=== PATIENT | female | born 1965 | race African-American/Black ===

== ENCOUNTER 2018-06-15 00:24 | Inpatient (IN) ==
[2018-06-15 01:05] LABS: Basophils % 0.4 % (0.0-0.8); Eosinophils % 0.1 % (0.00-10.9); Hematocrit 39.5 VOL% (35.7-47.0); Hemoglobin 13.1 GM/DL (12.0-16.0); Immature Granulocytes % 0.9 %; Immature Granulocytes Absolute 0.06 #; Lymphocytes # 1.2 10*3/uL (1.4-4.0); Lymphocytes % 17.1 % (21.3-54.2); Mean Corpuscular HGB Conc 33.2 GM/DL (32-36); Mean Corpuscular Hemoglobin 30 PG (27-34); Mean Corpuscular Volume 91.4 FL (87-102); Mean Platelet Volume 10.8 FL (9.6-12.0); Monocytes # 0.6 10*3/uL (0.11-0.8); Monocytes % 8.9 % (1.7-12.7); Neutrophils # 5.1 10*3/uL (1.4-7.4); Neutrophils % 72.6 % (38.7-73.9); Platelet Count 279 T/CUMM (130-400); Red Blood Count 4.32 MC/CUMM (3.8-5.5); Red Cell Distribution Width 14.4 % (9.3-17.3)
[2018-06-15 01:12] LABS: PT Patient Result 10.7 SECS; Partial Thromboplastin Time 28.2 SECS (0-40)
[2018-06-15 01:41] LABS: Alanine Aminotransferase 15 U/L (13-56); Albumin 4.3 G/DL (3.4-5.0); Alkaline Phosphatase 127 U/L (45-117); Amylase 49 U/L (25-115); Aspartate Amino Transferase 10 U/L (0-37); Bilirubin,Total < 0.39 MG/DL (0.2-1.0); Blood Urea Nitrogen 14 MG/DL (7-18); Calcium 10.9 MG/DL (8.5-10.1); Glucose 140 MG/DL (74-106); Lactic Acid 1.2 MMOL/L (0.4-2.0); Osmolality,Calculated 288.8 MOS/KG (273-304); Potassium 3.5 MMOL/L (3.5-5.1); Sodium 144 MMOL/L (136-145)
[2018-06-15] MEDS ORDERED: ONDANSETRON 4 MG/2 ML VIAL IV ONE ×2 (01:44→05:53)
[2018-06-15] MEDS ORDERED: KETOROLAC 30 MG/1 ML VIAL IV STA (01:44)
[2018-06-15 03:55] LABS: Amorphous Crystals,Urine Occasional /HPF (Few); Apearance,Urine CLOUDY (Clear); Bacteria,Urine Few /HPF (Few); Bilirubin,Urine Negative (Negative); Blood, Urine Small mg/dL (Negative); Glucose,Urine (UA) Negative (Negative); Ketones,Urine Negative (Negative); Mucus,Urine Moderate /LPF (Occasional); Nitrite,Urine Negative (Negative); Protein,Urine 30 MG/DL; RBC,Urine 47 /HPF (0-4); Urine Color Amber (Yellow); Urine Urobilinogen < 2.0 EU/DL (0.2-1.0)
[2018-06-15] MEDS ORDERED: fentaNYL 100 MCG/2 ML VIAL IV STA (05:53)
[2018-06-15] MEDS ORDERED: HYDROmorphone 2 MG/1 ML VIAL IV PRN (08:02)
[2018-06-15] MEDS: PANTOPRAZOLE 40 MG VIAL IV SCH (08:33)
[2018-06-15] MEDS: DEXTROSE 5% NACL 0.45% 1,000 ML IV SCH ×2 (08:33→15:16)
[2018-06-15] MEDS ORDERED: MORPHINE 4 MG/1 ML VIAL IV PRN (12:37)
[2018-06-15] MEDS ORDERED: MORPHINE 4 MG/1 ML VIAL ONE (12:40)
[2018-06-15] MEDS ORDERED: HYDROmorphone 2 MG/1 ML VIAL ONE (12:54)
[2018-06-15] MEDS: HYDROmorphone 2 MG/1 ML VIAL IV PRN ×4 (12:58→20:53)
[2018-06-15] MEDS ORDERED: POTASSIUM CHLORIDE INJ 20 MEQ in DEXTROSE 5% NACL 0.45% 1,000 ML IV SCH (15:51)
[2018-06-15] MEDS: DEXT 5% NACL 0.45% KCL 20 MEQ 20 MEQ/1,000 ML BAG IV SCH (16:52)
[2018-06-15] MEDS: ENOXAPARIN 40 MG/0.4 ML SYRINGE SUBCUT SCH (16:54)
[2018-06-15] MEDS: ONDANSETRON 4 MG/2 ML VIAL IV PRN (21:13)
[2018-06-16] MEDS: DEXT 5% NACL 0.45% KCL 20 MEQ 20 MEQ/1,000 ML BAG IV SCH ×2 (00:39→11:11)
[2018-06-16] MEDS: HYDROmorphone 2 MG/1 ML VIAL IV PRN ×6 (00:41→20:04)
[2018-06-16] MEDS: ONDANSETRON 4 MG/2 ML VIAL IV PRN ×3 (03:14→20:08)
[2018-06-16 07:24] LABS: Basophils # 0.1 10*3/uL (0.0-0.2); Basophils % 0.8 % (0.0-0.8); Eosinophils % 0.6 % (0.00-10.9); Hematocrit 42.6 VOL% (35.7-47.0); Hemoglobin 14.3 GM/DL (12.0-16.0); Immature Granulocytes % 0.2 %; Immature Granulocytes Absolute 0.01 #; Lymphocytes # 1.4 10*3/uL (1.4-4.0); Lymphocytes % 22.6 % (21.3-54.2); Mean Corpuscular HGB Conc 33.6 GM/DL (32-36); Mean Corpuscular Hemoglobin 31 PG (27-34); Mean Corpuscular Volume 91.2 FL (87-102); Mean Platelet Volume 9.8 FL (9.6-12.0); Monocytes # 0.8 10*3/uL (0.11-0.8); Monocytes % 13.5 % (1.7-12.7); Neutrophils # 3.8 10*3/uL (1.4-7.4); Neutrophils % 62.3 % (38.7-73.9); Platelet Count 239 T/CUMM (130-400); Red Blood Count 4.67 MC/CUMM (3.8-5.5); Red Cell Distribution Width 14.6 % (9.3-17.3); White Blood Count 6.2 T/CUMM (4-12)
[2018-06-16 07:49] LABS: Osmolality,Calculated 286.4 MOS/KG (273-304); Potassium 4.3 MMOL/L (3.5-5.1)
[2018-06-16 08:02] LABS: Parathyroid Hormone Intact 112.5 PG/ML (18.4-80.1)
[2018-06-16 08:06] LABS: Albumin 3.8 G/DL (3.4-5.0); Bilirubin,Total 0.4 MG/DL (0.2-1.0); Calcium 9.9 MG/DL (8.5-10.1); Osmolality,Calculated 284.5 MOS/KG (273-304); Potassium 4.3 MMOL/L (3.5-5.1); Risk Ratio 1.66; Total Protein 8.5 G/DL (6.4-8.3); VLDL CHOLESTEROL 12.2 MG/DL
[2018-06-16] MEDS ORDERED: METOPROLOL TARTRATE 5 MG/5 ML VIAL IV PRN (08:47)
[2018-06-16] MEDS ORDERED: SODIUM CHLORIDE 0.9% 500 ML IV ONE (08:47)
[2018-06-16] MEDS: PANTOPRAZOLE 40 MG VIAL IV SCH (10:04)
[2018-06-16] MEDS: SODIUM CHLORIDE 0.9% 1,000 ML IV SCH ×2 (11:02→20:03)
[2018-06-16] MEDS ORDERED: PROMETHAZINE 25 MG/1 ML VIAL IM PRN (11:08)
[2018-06-16] MEDS ORDERED: cefOXitin 2,000 MG in SYRINGE 1 EACH IV ONE (12:30)
[2018-06-16 14:57] LABS: Apearance,Urine Slightly Hazy (Clear); Bilirubin,Urine Negative (Negative); Blood, Urine Negative (Negative); Glucose,Urine (UA) Negative (Negative); Hyaline Casts,Urine 3 /LPF (0-3); Ketones,Urine Negative (Negative); Mucus,Urine Occasional /LPF (Occasional); Nitrite,Urine Negative (Negative); Protein,Urine 30 MG/DL; RBC,Urine 1 /HPF (0-4); Urine Color Amber (Yellow); Urine Specific Gravity 1.042 (1.001-1.035); Urine Urobilinogen < 2.0 EU/DL (0.2-1.0); WBC,Urine 3 /HPF (0-6)
[2018-06-16] MEDS ORDERED: PROPOFOL 200 MG/20 ML VIAL IV ONE (14:57)
[2018-06-16] MEDS ORDERED: SEVOFLURANE 1 UNIT/15 MINUTE INH ONE (14:57)
[2018-06-16] MEDS ORDERED: PHENYLEPHRINE 1 MG/10 ML SYRINGE IV ONE (14:58)
[2018-06-16] MEDS ORDERED: MIDAZOLAM 2 MG/2 ML VIAL ONE (14:58)
[2018-06-16] MEDS ORDERED: GLYCOPYRROLATE 0.4 MG/2 ML VIAL ONE (14:58)
[2018-06-16] MEDS ORDERED: ONDANSETRON 4 MG/2 ML VIAL ONE ×2 (14:58→15:48)
[2018-06-16] MEDS ORDERED: fentaNYL 100 MCG/2 ML VIAL ONE (14:58)
[2018-06-16] MEDS ORDERED: PHENYLEPHRINE 10 MG/1 ML VIAL IV ONE (14:58)
[2018-06-16] MEDS ORDERED: SUCCINYLCHOLINE 200 MG/10 ML VIAL ONE (14:59)
[2018-06-16] MEDS ORDERED: NEOSTIGMINE 10 MG/10 ML VIAL ONE (14:59)
[2018-06-16] MEDS ORDERED: ROCURONIUM 100 MG/10 ML VIAL IV ONE (14:59)
[2018-06-16] MEDS ORDERED: LACTATED RINGERS 1,000 ML IV ONE (14:59)
[2018-06-16] MEDS ORDERED: SODIUM CHLORIDE 0.9% 100 ML IV ONE (15:02)
[2018-06-16] MEDS ORDERED: HYDROmorphone 2 MG/1 ML VIAL ONE (15:48)
[2018-06-16] MEDS ORDERED: ONDANSETRON 4 MG/2 ML VIAL IV PRN (15:48)
[2018-06-16] MEDS ORDERED: HYDROmorphone 2 MG/1 ML VIAL IV PRN (15:48)
[2018-06-16] MEDS ORDERED: LACTATED RINGERS 1,000 ML IV SCH (16:00)
[2018-06-16] MEDS ORDERED: hydrALAZINE 20 MG/1 ML VIAL IV PRN (17:03)
[2018-06-16] MEDS: ENOXAPARIN 40 MG/0.4 ML SYRINGE SUBCUT SCH (18:39)
[2018-06-17] MEDS: SODIUM CHLORIDE 0.9% 1,000 ML IV SCH ×3 (03:30→18:41)
[2018-06-17] MEDS: ONDANSETRON 4 MG/2 ML VIAL IV PRN ×2 (03:36→20:53)
[2018-06-17] MEDS: HYDROmorphone 2 MG/1 ML VIAL IV PRN ×4 (05:55→20:49)
[2018-06-17] MEDS: PANTOPRAZOLE 40 MG VIAL IV SCH (09:02)
[2018-06-17] MEDS: ENOXAPARIN 40 MG/0.4 ML SYRINGE SUBCUT SCH ×2 (09:02→17:01)
[2018-06-17 09:15] LABS: Basophils # 0.1 10*3/uL (0.0-0.2); Basophils % 0.5 % (0.0-0.8); Eosinophils % 0.2 % (0.00-10.9); Hematocrit 41.2 VOL% (35.7-47.0); Immature Granulocytes % 0.3 %; Immature Granulocytes Absolute 0.03 #; Lymphocytes # 1.5 10*3/uL (1.4-4.0); Lymphocytes % 12.8 % (21.3-54.2); Mean Corpuscular Hemoglobin 31 PG (27-34); Mean Corpuscular Volume 90.2 FL (87-102); Mean Platelet Volume 10.4 FL (9.6-12.0); Monocytes % 8.5 % (1.7-12.7); Neutrophils # 8.8 10*3/uL (1.4-7.4); Neutrophils % 77.7 % (38.7-73.9); Platelet Count 197 T/CUMM (130-400); Red Blood Count 4.57 MC/CUMM (3.8-5.5); White Blood Count 11.3 T/CUMM (4-12)
[2018-06-17 09:42] LABS: Anisocytosis 1+; Band Neutrophils 59 % (0-10); Lymphocytes 14 % (20-55); Macrocytosis Slight; Platelet Estimate Normal; Segmented Neutrophils 19 % (50-85); Total Cells Counted 100
[2018-06-17 09:47] LABS: Calcium 8.6 MG/DL (8.5-10.1); Potassium 4.4 MMOL/L (3.5-5.1)
[2018-06-17] MEDS ORDERED: SODIUM CHLORIDE 0.9% 1,000 ML IV ONE ×2 (11:22→14:47)
[2018-06-17] MEDS ORDERED: MAGNESIUM SULF RIDER 2 GM in PREMIX 1 EACH IV ONE (11:24)
[2018-06-17] MEDS: MAGNESIUM SULF RIDER 2 GM in PREMIX 1 EACH IV PRN (12:48)
[2018-06-18] MEDS: SODIUM CHLORIDE 0.9% 1,000 ML IV SCH ×2 (00:02→05:58)
[2018-06-18] MEDS: HYDROmorphone 2 MG/1 ML VIAL IV PRN ×4 (04:40→20:17)
[2018-06-18] MEDS: ONDANSETRON 4 MG/2 ML VIAL IV PRN (04:44)
[2018-06-18 06:16] LABS: Basophils # 0.1 10*3/uL (0.0-0.2); Basophils % 0.5 % (0.0-0.8); Eosinophils # 0.2 10*3/uL (0.0-0.87); Eosinophils % 1.9 % (0.00-10.9); Hematocrit 33.2 VOL% (35.7-47.0); Hemoglobin 10.7 GM/DL (12.0-16.0); Immature Granulocytes % 0.3 %; Immature Granulocytes Absolute 0.03 #; Lymphocytes % 9.6 % (21.3-54.2); Mean Corpuscular HGB Conc 32.2 GM/DL (32-36); Mean Corpuscular Hemoglobin 30 PG (27-34); Mean Corpuscular Volume 92.2 FL (87-102); Mean Platelet Volume 10.4 FL (9.6-12.0); Monocytes # 0.9 10*3/uL (0.11-0.8); Monocytes % 8.6 % (1.7-12.7); Neutrophils # 7.8 10*3/uL (1.4-7.4); Neutrophils % 79.1 % (38.7-73.9); Platelet Count 145 T/CUMM (130-400); Red Cell Distribution Width 13.9 % (9.3-17.3); White Blood Count 9.9 T/CUMM (4-12)
[2018-06-18 06:31] LABS: Calcium 8.9 MG/DL (8.5-10.1); Osmolality,Calculated 296.6 MOS/KG (273-304)
[2018-06-18 06:41] LABS: Band Neutrophils 8 % (0-10); Eosinophils 2 % (0-10); Hypochromasia 1+; Lymphocytes 6 % (20-55); Ovalocytes Slight; Platelet Estimate Normal; Segmented Neutrophils 76 % (50-85); Total Cells Counted 100
[2018-06-18 06:42] LABS: Macrocytosis Slight
[2018-06-18] MEDS ORDERED: SODIUM CHLORIDE 0.45% 1,000 ML IV SCH (08:00)
[2018-06-18] MEDS: ENOXAPARIN 40 MG/0.4 ML SYRINGE SUBCUT SCH ×2 (08:42→17:09)
[2018-06-18] MEDS: PANTOPRAZOLE 40 MG VIAL IV SCH (08:42)
[2018-06-18] MEDS: DEXTROSE 5% NACL 0.45% 1,000 ML IV SCH ×2 (11:02→20:18)
[2018-06-19] MEDS: HYDROmorphone 2 MG/1 ML VIAL IV PRN ×4 (00:32→20:26)
[2018-06-19] MEDS: DEXTROSE 5% NACL 0.45% 1,000 ML IV SCH ×3 (04:03→20:28)
[2018-06-19 07:12] LABS: Basophils % 0.3 % (0.0-0.8); Eosinophils # 0.2 10*3/uL (0.0-0.87); Eosinophils % 2.6 % (0.00-10.9); Hemoglobin 10.5 GM/DL (12.0-16.0); Immature Granulocytes % 0.4 %; Immature Granulocytes Absolute 0.03 #; Lymphocytes # 0.8 10*3/uL (1.4-4.0); Lymphocytes % 10.1 % (21.3-54.2); Mean Corpuscular HGB Conc 33.9 GM/DL (32-36); Mean Corpuscular Hemoglobin 30 PG (27-34); Mean Corpuscular Volume 89.6 FL (87-102); Mean Platelet Volume 10.2 FL (9.6-12.0); Monocytes # 0.7 10*3/uL (0.11-0.8); Monocytes % 8.7 % (1.7-12.7); Neutrophils % 77.9 % (38.7-73.9); Platelet Count 138 T/CUMM (130-400); Red Blood Count 3.46 MC/CUMM (3.8-5.5); Red Cell Distribution Width 13.7 % (9.3-17.3); White Blood Count 7.6 T/CUMM (4-12)
[2018-06-19 07:39] LABS: Calcium 9.4 MG/DL (8.5-10.1); Potassium 3.8 MMOL/L (3.5-5.1)
[2018-06-19] MEDS: PANTOPRAZOLE 40 MG VIAL IV SCH (08:20)
[2018-06-19] MEDS ORDERED: PHENOL 1.4% THROAT SPRAY 177 ML BOTTLE PO PRN (11:37)
[2018-06-19] MEDS: ENOXAPARIN 40 MG/0.4 ML SYRINGE SUBCUT SCH (17:47)
[2018-06-19] MEDS: ONDANSETRON 4 MG/2 ML VIAL IV PRN (18:29)
[2018-06-19] MEDS: ALBUTEROL/IPRATROPIUM 3 ML NEB RESP TX SCH (18:47)
[2018-06-20] MEDS: ALBUTEROL/IPRATROPIUM 3 ML NEB RESP TX SCH ×4 (00:55→19:51)
[2018-06-20] MEDS: DEXTROSE 5% NACL 0.45% 1,000 ML IV SCH (02:05)
[2018-06-20] MEDS: HYDROmorphone 2 MG/1 ML VIAL IV PRN ×4 (03:46→23:00)
[2018-06-20 07:25] LABS: Basophils % 0.3 % (0.0-0.8); Eosinophils # 0.1 10*3/uL (0.0-0.87); Eosinophils % 1.5 % (0.00-10.9); Hematocrit 31.2 VOL% (35.7-47.0); Hemoglobin 10.4 GM/DL (12.0-16.0); Immature Granulocytes % 0.3 %; Immature Granulocytes Absolute 0.03 #; Lymphocytes # 1.3 10*3/uL (1.4-4.0); Mean Corpuscular HGB Conc 33.3 GM/DL (32-36); Mean Corpuscular Hemoglobin 30 PG (27-34); Mean Corpuscular Volume 90.2 FL (87-102); Mean Platelet Volume 10.7 FL (9.6-12.0); Monocytes # 0.8 10*3/uL (0.11-0.8); Neutrophils # 7.1 10*3/uL (1.4-7.4); Neutrophils % 75.9 % (38.7-73.9); Platelet Count 148 T/CUMM (130-400); Red Blood Count 3.46 MC/CUMM (3.8-5.5); Red Cell Distribution Width 13.3 % (9.3-17.3); White Blood Count 9.4 T/CUMM (4-12)
[2018-06-20 07:50] LABS: Calcium 9.1 MG/DL (8.5-10.1); Osmolality,Calculated 285.8 MOS/KG (273-304); Potassium 2.9 MMOL/L (3.5-5.1)
[2018-06-20] MEDS ORDERED: DEXT 5% NACL 0.45% KCL 20 MEQ 20 MEQ/1,000 ML BAG IV SCH (09:30)
[2018-06-20] MEDS: PANTOPRAZOLE 40 MG VIAL IV SCH (09:46)
[2018-06-20] MEDS: POTASSIUM CHLORIDE RIDER 10 MEQ in PREMIX 1 EACH IV PRN ×4 (11:14→23:59)
[2018-06-20] MEDS ORDERED: FUROSEMIDE 40 MG/4 ML VIAL IV ONE (11:24)
[2018-06-20] MEDS ORDERED: DEXTROSE 50% 25 GM/50 ML VIAL IV PRN (11:31)
[2018-06-20] MEDS ORDERED: GLUCAGON 1 MG VIAL IM PRN (11:31)
[2018-06-20] MEDS: MAGNESIUM SULF RIDER 2 GM in PREMIX 1 EACH IV PRN (16:20)
[2018-06-20] MEDS: FAT EMULSION 20% 250 ML IV SCH (16:21)
[2018-06-20] MEDS ORDERED: [UNRECOGNIZED DRUG - OTHER] IV ONE (17:00)
[2018-06-20] MEDS ORDERED: MULTIVITAMIN IV ONE (17:00)
[2018-06-20] MEDS ORDERED: POTASSIUM PHOSPHATE IV ONE (17:00)
[2018-06-20] MEDS ORDERED: TRACE ELEMENTS IV ONE (17:00)
[2018-06-20] MEDS: INSULIN REGULAR 100 UNIT/ML SUBCUT SCH (17:43)
[2018-06-20] MEDS: ENOXAPARIN 40 MG/0.4 ML SYRINGE SUBCUT SCH (17:52)
[2018-06-21] MEDS: ALBUTEROL/IPRATROPIUM 3 ML NEB RESP TX SCH ×5 (00:15→23:43)
[2018-06-21] MEDS: INSULIN REGULAR 100 UNIT/ML SUBCUT SCH ×4 (01:31→18:42)
[2018-06-21] MEDS: HYDROmorphone 2 MG/1 ML VIAL IV PRN ×3 (05:06→18:12)
[2018-06-21 05:56] LABS: Basophils % 0.4 % (0.0-0.8); Eosinophils # 0.2 10*3/uL (0.0-0.87); Eosinophils % 2.9 % (0.00-10.9); Hematocrit 33.3 VOL% (35.7-47.0); Immature Granulocytes % 0.4 %; Immature Granulocytes Absolute 0.03 #; Lymphocytes # 1.5 10*3/uL (1.4-4.0); Lymphocytes % 18.2 % (21.3-54.2); Mean Corpuscular Hemoglobin 29 PG (27-34); Mean Corpuscular Volume 88.6 FL (87-102); Mean Platelet Volume 10.4 FL (9.6-12.0); Monocytes % 12.1 % (1.7-12.7); Neutrophils # 5.3 10*3/uL (1.4-7.4); Platelet Count 162 T/CUMM (130-400); Red Blood Count 3.76 MC/CUMM (3.8-5.5); Red Cell Distribution Width 13.2 % (9.3-17.3)
[2018-06-21 06:25] LABS: Alanine Aminotransferase 12 U/L (13-56); Albumin 2.3 G/DL (3.4-5.0); Alkaline Phosphatase 118 U/L (45-117); Aspartate Amino Transferase 13 U/L (0-37); Bilirubin,Total < 0.39 MG/DL (0.2-1.0); Blood Urea Nitrogen 15 MG/DL (7-18); Calcium 9.5 MG/DL (8.5-10.1); Glucose 133 MG/DL (74-106); Osmolality,Calculated 285.1 MOS/KG (273-304); Potassium 3.2 MMOL/L (3.5-5.1); Sodium 142 MMOL/L (136-145); Total Protein 6.8 G/DL (6.4-8.3)
[2018-06-21 06:29] LABS: Calcium 9.4 MG/DL (8.5-10.1); Potassium 3.2 MMOL/L (3.5-5.1); Prealbumin 7.3 MG/DL (20-40)
[2018-06-21] MEDS ORDERED: LEVOTHYROXINE 100 MCG VIAL IV SCH (07:00)
[2018-06-21] MEDS: PANTOPRAZOLE 40 MG VIAL IV SCH (10:03)
[2018-06-21] MEDS: LEVOTHYROXINE 100 MCG VIAL IV SCH (10:05)
[2018-06-21] MEDS: POTASSIUM CHLORIDE RIDER 10 MEQ in PREMIX 1 EACH IV PRN ×4 (10:10→14:08)
[2018-06-21] MEDS: FAT EMULSION 20% 250 ML IV SCH (15:19)
[2018-06-21] MEDS ORDERED: DEXTROSE 10% 1,000 ML IV PRN (17:00)
[2018-06-21] MEDS: [UNRECOGNIZED DRUG - OTHER] IV SCH (17:13)
[2018-06-21] MEDS: MULTIVITAMIN IV SCH (17:13)
[2018-06-21] MEDS: POTASSIUM PHOSPHATE IV SCH (17:13)
[2018-06-21] MEDS: TRACE ELEMENTS IV SCH (17:13)
[2018-06-21] MEDS: ENOXAPARIN 40 MG/0.4 ML SYRINGE SUBCUT SCH (17:22)
[2018-06-21] MEDS: ONDANSETRON 4 MG/2 ML VIAL IV PRN (18:13)
[2018-06-22] MEDS: HYDROmorphone 2 MG/1 ML VIAL IV PRN ×5 (00:02→21:05)
[2018-06-22] MEDS: ONDANSETRON 4 MG/2 ML VIAL IV PRN ×4 (00:02→21:05)
[2018-06-22] MEDS: INSULIN REGULAR 100 UNIT/ML SUBCUT SCH ×4 (00:58→17:46)
[2018-06-22] MEDS: POTASSIUM CHLORIDE RIDER 10 MEQ in PREMIX 1 EACH IV PRN ×2 (02:58→05:00)
[2018-06-22 06:05] LABS: Basophils # 0.1 10*3/uL (0.0-0.2); Basophils % 0.8 % (0.0-0.8); Eosinophils # 0.2 10*3/uL (0.0-0.87); Eosinophils % 2.7 % (0.00-10.9); Hematocrit 35.6 VOL% (35.7-47.0); Hemoglobin 11.9 GM/DL (12.0-16.0); Immature Granulocytes % 0.7 %; Immature Granulocytes Absolute 0.06 #; Lymphocytes # 1.8 10*3/uL (1.4-4.0); Lymphocytes % 19.5 % (21.3-54.2); Mean Corpuscular HGB Conc 33.4 GM/DL (32-36); Mean Corpuscular Hemoglobin 30 PG (27-34); Mean Corpuscular Volume 89.2 FL (87-102); Mean Platelet Volume 10.4 FL (9.6-12.0); Monocytes # 1.4 10*3/uL (0.11-0.8); Monocytes % 15.1 % (1.7-12.7); Neutrophils # 5.5 10*3/uL (1.4-7.4); Neutrophils % 61.2 % (38.7-73.9); Platelet Count 214 T/CUMM (130-400); Red Blood Count 3.99 MC/CUMM (3.8-5.5); Red Cell Distribution Width 13.2 % (9.3-17.3)
[2018-06-22 06:19] LABS: Calcium 9.1 MG/DL (8.5-10.1); Osmolality,Calculated 284.3 MOS/KG (273-304); Potassium 4.1 MMOL/L (3.5-5.1)
[2018-06-22 06:24] LABS: Albumin 2.3 G/DL (3.4-5.0); Bilirubin,Total 0.6 MG/DL (0.2-1.0); Calcium 9.4 MG/DL (8.5-10.1); Osmolality,Calculated 282.4 MOS/KG (273-304); Potassium 4.1 MMOL/L (3.5-5.1); Total Protein 6.8 G/DL (6.4-8.3)
[2018-06-22] MEDS: ALBUTEROL/IPRATROPIUM 3 ML NEB RESP TX SCH ×3 (07:32→19:49)
[2018-06-22] MEDS: PANTOPRAZOLE 40 MG VIAL IV SCH (08:32)
[2018-06-22] MEDS: LEVOTHYROXINE 100 MCG VIAL IV SCH (08:32)
[2018-06-22] MEDS: FAT EMULSION 20% 250 ML IV SCH (14:50)
[2018-06-22] MEDS: ENOXAPARIN 40 MG/0.4 ML SYRINGE SUBCUT SCH (17:28)
[2018-06-22] MEDS: POTASSIUM PHOSPHATE IV SCH (17:28)
[2018-06-22] MEDS: TRACE ELEMENTS IV SCH (17:28)
[2018-06-22] MEDS: MULTIVITAMIN IV SCH (17:28)
[2018-06-22] MEDS: [UNRECOGNIZED DRUG - OTHER] IV SCH (17:28)
[2018-06-23] MEDS: INSULIN REGULAR 100 UNIT/ML SUBCUT SCH ×4 (00:57→18:48)
[2018-06-23] MEDS: ALBUTEROL/IPRATROPIUM 3 ML NEB RESP TX SCH ×4 (02:09→19:26)
[2018-06-23] MEDS: HYDROmorphone 2 MG/1 ML VIAL IV PRN ×4 (02:56→20:13)
[2018-06-23] MEDS: ONDANSETRON 4 MG/2 ML VIAL IV PRN ×2 (02:56→18:52)
[2018-06-23 07:09] LABS: Basophils # 0.1 10*3/uL (0.0-0.2); Basophils % 0.7 % (0.0-0.8); Eosinophils # 0.4 10*3/uL (0.0-0.87); Eosinophils % 4.3 % (0.00-10.9); Hematocrit 34.4 VOL% (35.7-47.0); Hemoglobin 11.4 GM/DL (12.0-16.0); Immature Granulocytes % 0.4 %; Immature Granulocytes Absolute 0.04 #; Lymphocytes # 2.4 10*3/uL (1.4-4.0); Lymphocytes % 25.2 % (21.3-54.2); Mean Corpuscular HGB Conc 33.1 GM/DL (32-36); Mean Corpuscular Hemoglobin 30 PG (27-34); Mean Corpuscular Volume 90.1 FL (87-102); Mean Platelet Volume 10.8 FL (9.6-12.0); Monocytes # 1.3 10*3/uL (0.11-0.8); Monocytes % 13.9 % (1.7-12.7); Neutrophils # 5.2 10*3/uL (1.4-7.4); Neutrophils % 55.5 % (38.7-73.9); Platelet Count 260 T/CUMM (130-400); Red Blood Count 3.82 MC/CUMM (3.8-5.5); Red Cell Distribution Width 13.2 % (9.3-17.3); White Blood Count 9.4 T/CUMM (4-12)
[2018-06-23 07:42] LABS: Calcium 9.5 MG/DL (8.5-10.1); Osmolality,Calculated 281.5 MOS/KG (273-304); Potassium 4.4 MMOL/L (3.5-5.1)
[2018-06-23 07:47] LABS: Albumin 2.3 G/DL (3.4-5.0); Bilirubin,Total 0.4 MG/DL (0.2-1.0); Calcium 9.5 MG/DL (8.5-10.1); Osmolality,Calculated 280.5 MOS/KG (273-304); Potassium 4.4 MMOL/L (3.5-5.1); Total Protein 6.6 G/DL (6.4-8.3)
[2018-06-23] MEDS: PANTOPRAZOLE 40 MG VIAL IV SCH (09:35)
[2018-06-23] MEDS: LEVOTHYROXINE 100 MCG VIAL IV SCH (09:48)
[2018-06-23] MEDS ORDERED: PHENOL 1.4% THROAT SPRAY 177 ML BOTTLE PO PRN (11:13)
[2018-06-23] MEDS: FAT EMULSION 20% 250 ML IV SCH (15:47)
[2018-06-23] MEDS: [UNRECOGNIZED DRUG - OTHER] IV SCH (18:39)
[2018-06-23] MEDS: POTASSIUM PHOSPHATE IV SCH (18:39)
[2018-06-23] MEDS: TRACE ELEMENTS IV SCH (18:39)
[2018-06-23] MEDS: MULTIVITAMIN IV SCH (18:39)
[2018-06-23] MEDS: ENOXAPARIN 40 MG/0.4 ML SYRINGE SUBCUT SCH (18:40)
[2018-06-23] MEDS: ZALEPLON 5 MG CAPSULE PO PRN (20:13)
[2018-06-24] MEDS: ALBUTEROL/IPRATROPIUM 3 ML NEB RESP TX SCH ×4 (00:09→19:22)
[2018-06-24] MEDS: HYDROmorphone 2 MG/1 ML VIAL IV PRN ×2 (00:53→05:52)
[2018-06-24] MEDS: INSULIN REGULAR 100 UNIT/ML SUBCUT SCH ×4 (01:10→13:53)
[2018-06-24] MEDS: LEVOTHYROXINE 100 MCG VIAL IV SCH ×2 (05:46→07:29)
[2018-06-24] MEDS: ONDANSETRON 4 MG/2 ML VIAL IV PRN (05:52)
[2018-06-24 05:55] LABS: Basophils # 0.1 10*3/uL (0.0-0.2); Basophils % 0.9 % (0.0-0.8); Eosinophils # 0.4 10*3/uL (0.0-0.87); Eosinophils % 4.4 % (0.00-10.9); Hematocrit 35.9 VOL% (35.7-47.0); Hemoglobin 11.8 GM/DL (12.0-16.0); Immature Granulocytes % 0.8 %; Immature Granulocytes Absolute 0.06 #; Lymphocytes % 25.3 % (21.3-54.2); Mean Corpuscular HGB Conc 32.9 GM/DL (32-36); Mean Corpuscular Hemoglobin 30 PG (27-34); Mean Corpuscular Volume 90.9 FL (87-102); Mean Platelet Volume 10.1 FL (9.6-12.0); Monocytes # 1.2 10*3/uL (0.11-0.8); Monocytes % 14.6 % (1.7-12.7); Neutrophils # 4.3 10*3/uL (1.4-7.4); Platelet Count 287 T/CUMM (130-400); Red Blood Count 3.95 MC/CUMM (3.8-5.5); Red Cell Distribution Width 13.2 % (9.3-17.3); White Blood Count 7.9 T/CUMM (4-12)
[2018-06-24 06:13] LABS: Albumin 2.7 G/DL (3.4-5.0); Bilirubin,Total 0.4 MG/DL (0.2-1.0); Calcium 9.4 MG/DL (8.5-10.1); Potassium 5.4 MMOL/L (3.5-5.1); Total Protein 7.3 G/DL (6.4-8.3)
[2018-06-24] MEDS: PANTOPRAZOLE 40 MG VIAL IV SCH (10:32)
[2018-06-24] MEDS ORDERED: HYDROmorphone 2 MG/1 ML VIAL IV PRN (13:45)
[2018-06-24] MEDS: MULTIVITAMIN IV SCH (17:35)
[2018-06-24] MEDS: POTASSIUM PHOSPHATE IV SCH (17:35)
[2018-06-24] MEDS: [UNRECOGNIZED DRUG - OTHER] IV SCH (17:35)
[2018-06-24] MEDS: TRACE ELEMENTS IV SCH (17:35)
[2018-06-24] MEDS: FAT EMULSION 20% 250 ML IV SCH (17:47)
[2018-06-24] MEDS: ENOXAPARIN 40 MG/0.4 ML SYRINGE SUBCUT SCH (19:03)
[2018-06-24] MEDS: POLYETHYLENE GLYCOL POWDER 17 GM PACK PO SCH (20:44)
[2018-06-24] MEDS: DOCUSATE SODIUM 100 MG CAPSULE PO SCH (20:44)
[2018-06-24] MEDS: ZALEPLON 5 MG CAPSULE PO PRN (21:10)
[2018-06-25] MEDS: INSULIN REGULAR 100 UNIT/ML SUBCUT SCH ×4 (01:09→11:32)
[2018-06-25] MEDS: ALBUTEROL/IPRATROPIUM 3 ML NEB RESP TX SCH ×3 (01:25→14:16)
[2018-06-25] MEDS ORDERED: LEVOTHYROXINE 100 MCG TABLET PO SCH (06:30)
[2018-06-25] MEDS ORDERED: PANTOPRAZOLE 40 MG TABLET PO SCH (09:00)
[2018-06-25] MEDS: POLYETHYLENE GLYCOL POWDER 17 GM PACK PO SCH (09:01)
[2018-06-25] MEDS: DOCUSATE SODIUM 100 MG CAPSULE PO SCH (09:01)
[2018-06-25] MEDS ORDERED: LACTULOSE 20 GM/30 ML UDCUP PO SCH (13:30)
[2018-06-25] MEDS ORDERED: hydrOXYzine HCL 25 MG TABLET PO PRN (14:59)
[2018-06-25] MEDS ORDERED: FLUTICASONE 50 MCG NASAL SPRAY 16 GM BOTTLE BOTH NARES SCH (15:00)
[2018-06-25] MEDS ORDERED: ASPIRIN 325 MG TABLET PO SCH (15:00)
[2018-06-25] MEDS ORDERED: LEVOTHYROXINE 200 MCG TABLET PO SCH (15:00)
[2018-06-25] MEDS ORDERED: HYDROXYCHLOROQUINE 200 MG TABLET PO SCH (15:00)
[2018-06-25] MEDS ORDERED: FOLIC ACID 1 MG TABLET PO SCH (15:00)
[2018-06-25] MEDS ORDERED: CITALOPRAM 20 MG TABLET PO SCH (15:00)
[2018-06-25] MEDS ORDERED: MONTELUKAST 10 MG TABLET PO SCH (15:00)
[2018-06-25] MEDS ORDERED: CETIRIZINE 10 MG TABLET PO SCH ×2 (15:00)
[2018-06-25] MEDS ORDERED: ESTRADIOL 1 MG TABLET PO SCH (15:00)
[2018-06-25] MEDS: ENOXAPARIN 40 MG/0.4 ML SYRINGE SUBCUT SCH (16:59)
[2018-06-25] MEDS ORDERED: THEOPHYLLINE ER 300 MG TABLET PO SCH (17:00)
[2018-06-25] MEDS: POTASSIUM PHOSPHATE IV SCH (18:08)
[2018-06-25] MEDS: MULTIVITAMIN IV SCH (18:08)
[2018-06-25] MEDS: TRACE ELEMENTS IV SCH (18:08)
[2018-06-25] MEDS: [UNRECOGNIZED DRUG - OTHER] IV SCH (18:08)
[2018-06-25] MEDS: FAT EMULSION 20% 250 ML IV SCH (18:09)
[2018-06-25 18:12] VITALS: BP 133/70
[2018-06-25] MEDS ORDERED: TOPIRAMATE 100 MG TABLET PO SCH (21:00)
[2018-06-25] MEDS ORDERED: ZONISAMIDE 100 MG CAPSULE PO SCH (21:00)
== END 2018-06-25 19:03 | disposition home or self-care (01) | DRG 335 ==
LOC: N.ED 00:24 → N.EDINP 05:59 → N.TELEN 06:41 → N.5E 14:30
PROVIDERS: ADMIT Surgery; ATTEND Surgery